=== PATIENT | male | born 1955 | race Caucasian/White ===

== ENCOUNTER 2017-01-18 06:46 | Day surgery (SDC) | payer MEDICARE, MEDICAID ==
[~2017-01-18 06:46] MED LIST: ALPHA LIPOIC A GT; ARIPIPRAZOLE20 MG GT; BREO ELLIPTA 11 EAC1 INH; CARNITOR330 MG/TAB GT; INCRUSE ELLI62.5 MCG INH; IPRAT-ALBUT 0.5-3 ML INH; ISOSORBIDE DINI10 M1 GT; LANSOPRAZOLE30 M2 GT; PERIDEX118 ML SSP; POLYETHYLENE G255 G1 GT; PRAVASTATIN SOD10 M1 GT; REMERON15 M1 GT; SENNA PLUS TAB1 EAC1 GT; TERAZOSIN HCL1 M1 GT; TRAZODONE HCL150 M1 GT; VITAMIN D31000 UNI3 GT; ZYPREXA ZYDIS10 MG GT; [UNRECOGNIZED DRUG - OTHER] GT
[2017-01-18 07:45] LABS: BASO % 0.6 % (0-2); EOS % 0.9 % (0-7); HCT-HEMATOCRIT 32.8 % (36.0-53.5); HGB-HEMOGLOBIN 11.6 gm/dl (13.5-17.0); IMMATURE GRANULOCYTES ABSOLUTE 0.02 tho/cmm (0-0.03); IMMATURE GRANULOCYTES PERCENT 0.6 % (0-0.3); LYMPH % 23.8 % (20-45); LYMPH ABSOLUTE COUNT 0.8 tho/cmm (0.8-4.5); MCH (MEAN CORPUSCULAR HGB) 30.9 pg (28.0-32.0); MCHC MEAN CORPUSCULAR HGB CONC 35.4 % (32.0-36.0); MCV (MEAN CELL VOLUME) 87.5 fl (82.0-96.0); MEAN PLATELET VOLUME 11.1 cmc (9.4-12.4); MONO % 6.6 % (0-12); MONOCYTE ABSOLUTE COUNT 0.2 tho/cmm (0.0-1.2); NEUTROPHIL ABSOLUTE COUNT 2.2 tho/cmm (1.6-8.0); NEUTROPHIL-AUTOMATED 2.2 tho/cmm (1.6-8.0); NEUTROPHILS % 67.5 % (40-80); RED BLOOD COUNT 3.75 mil/cmm (4.40-5.70); RED CELL DISTRIBUTION WIDTH 17.4 % (12.4-16.4); WHITE BLOOD COUNT 3.2 tho/cmm (4.0-10.0)
[2017-01-18 08:01] LABS: ANION GAP 12 mmol/L (0-20); BLOOD UREA NITROGEN 21 mg/dl (6-24); CARBON DIOXIDE-VENOUS 28 mmol/L (22-32); CHLORIDE 103 mmol/l (96-110); GLUCOSE 99 mg/dL (70-110); POTASSIUM 3.9 mmol/L (3.7-5.1); SODIUM 139 mmol/L (135-145); eGFR VALUE FOR BLACK >90 mL/Min
[2017-01-18 08:40] LABS: PLATELET COUNT 134 tho/cmm (150-450)
== END 2017-01-18 11:25 ==
LOC: ENDOS 06:46 → SHSC 06:52 → ENDOS 08:30
PROVIDERS: Anesthesiology
PROC: 0DBH8ZX Excision of Cecum, Via Natural or Artificial Opening Endoscopic, Diagnostic (ICD-10-PCS; principal; 2017-01-18)
PROC: 0DBK8ZZ Excision of Ascending Colon, Via Natural or Artificial Opening Endoscopic (ICD-10-PCS; 2017-01-18)
PROC: 0DBN8ZZ Excision of Sigmoid Colon, Via Natural or Artificial Opening Endoscopic (ICD-10-PCS; 2017-01-18)
PROC: 0DBM8ZZ Excision of Descending Colon, Via Natural or Artificial Opening Endoscopic (ICD-10-PCS; 2017-01-18)
PROC: 0DB58ZX Excision of Esophagus, Via Natural or Artificial Opening Endoscopic, Diagnostic (ICD-10-PCS; 2017-01-18)
DX: K22.70 Barrett's esophagus without dysplasia (principal); K31.819 Angiodysplasia of stomach and duodenum without bleeding; D12.0 Benign neoplasm of cecum; D12.2 Benign neoplasm of ascending colon; D12.4 Benign neoplasm of descending colon; K63.5 Polyp of colon; K76.6 Portal hypertension; K31.89 Other diseases of stomach and duodenum; K63.89 Other specified diseases of intestine; K64.0 First degree hemorrhoids; D64.9 Anemia, unspecified; I25.10 Atherosclerotic heart disease of native coronary artery without angina pectoris; G61.0 Guillain-Barre syndrome; E03.9 Hypothyroidism, unspecified; F20.9 Schizophrenia, unspecified; H26.9 Unspecified cataract; J40 Bronchitis, not specified as acute or chronic; K21.9 Gastro-esophageal reflux disease without esophagitis; F10.21 Alcohol dependence, in remission; Z79.899 Other long term (current) drug therapy; Z87.891 Personal history of nicotine dependence; Z87.01 Personal history of pneumonia (recurrent); Z98.890 Other specified postprocedural states